=== PATIENT | male | born 1970 | race Caucasian/White ===

== ENCOUNTER 2017-11-24 20:19 | Emergency (ER) | payer OTHER, SELFPAY ==
[2017-11-24 21:21] VITALS: BP 118/82; PULSE 96; RESP 18; TEMP 37.2; O2SAT 98; BMI 32.1
--- NOTE | 2017-11-24 21:26 | XR_ITS ---
XR chest 2V COMPARISON: PA and lateral chest 12/29/2013 HISTORY: Shortness of breath TECHNIQUE: PA and lateral chest FINDINGS: The lung lao are well expanded and appear clear of infiltrate. The cardiac silhouette and vascularity are normal. There are calcified hilar nodes bilaterally and calcified subcarinal nodes. The bony thorax is normal. IMPRESSION: Old granulomatous disease, no acute chest pathology noted
[2017-11-24 21:36] LABS: UTC Influenza A Antigen Negative (Negative); UTC Influenza B Antigen Negative (Negative)
--- NOTE | 2017-11-24 21:50 | PC.NURSE ---
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 At rest, RR 32. Lungs tight w/ expiratory wheezing but SPO2 stable at 98. + tobacco abuse. Denies hx of chronic lung disease. Typically not SOA. Sudden onset today associated w/ bodyaches and fatigue. Rapid flu negative. CXR pending ER MDs evaluation. Pt unable to speak in sentences he is so SOA. Discussed possible differentials and [facility] guidelines. Pt and agreeable to transfer to ER. Walked over to speak with ER MD. Not available. Report given to only available staff, Shira Juarez. Room 4 available. Pt assisted to ER in WC.
[2017-11-24 21:58] VITALS: PULSE 90; RESP 26; O2SAT 93; BMI 32.1
[2017-11-24 22:12] LABS: Adenovirus,PCR Not Detected (NotDetected); Bordetella Pertussis Not Detected (NotDetected); Chlamydophila Pneumoniae, PCR Not Detected (NotDetected); Coronavirus 229E Not Detected (NotDetected); Coronavirus NL63 Not Detected (NotDetected); Coronavirus OC43 Not Detected (NotDetected); Coronovirus HKU1,PCR Not Detected (NotDetected); Human Metapneumovirus Not Detected (NotDetected); Influenza A, PCR Not Detected (NotDetected); Influenza AH1, 2009 Not Detected (NotDetected); Influenza AH1, PCR Not Detected (NotDetected); Influenza AH3,PCR Not Detected (NotDetected); Influenza B, PCR Not Detected (NotDetected); Mycoplasma Pneumoniae, PCR Not Detected (NotDected); Parainfluenza 1, PCR Not Detected (NotDetected); Parainfluenza 2, PCR Not Detected (NotDetected); Parainfluenza 3, PCR Not Detected (NotDetected); Parainfluenza 4, PCR Not Detected (NotDetected); Respiratory Syncytial Virus Not Detected (NotDetected); Rhinovirus/Enterovirus Not Detected (NotDetected)
[2017-11-24 22:28] LABS: Strep Scrn Group A (Rapid) Negative (Negative)
[2017-11-24 22:37] LABS: Basophils % 0.6 % (0.1-2.0); Eosinophils # 0.1 K/mm3 (0.0-0.4); Eosinophils % 1.6 % (0.1-12.0); Hematocrit 40.1 % (42.0-52.0); Hemoglobin 13.3 g/dL (14.1-18.0); Lymphocytes # 2.6 K/mm3 (0.7-4.5); Lymphocytes % 38.8 K/mm3 (10-50); Mean Corpuscular HGB Conc 33.1 g/dL (31.8-35.4); Mean Corpuscular Hemoglobin 29.6 pg (27.0-31.2); Mean Corpuscular Volume 89.6 fl (80-94); Mean Platelet Volume 7.4 fl (7.4-10.4); Monocytes # 0.7 K/mm3 (0.1-1.0); Monocytes % 9.8 % (1.7-9.3); Neutrophils # 3.3 K/mm3 (1.8-7.8); Neutrophils % 49.2 % (37.0-80.0); Platelet Count 183 K/mm3 (142-424); Red Blood Count 4.48 M/mm3 (4.60-6.20); Red Cell Distribution Width 12.4 % (11.5-17.5); White Blood Count 6.7 K/mm3 (4.8-10.8)
[2017-11-24 22:50] LABS: Lactic Acid 1.1 mmol/L (0.4-2.0)
[2017-11-24 22:51] LABS: Alanine Aminotransferase 51 U/L (12-78); Albumin Level 3.8 gm/dL (3.4-5.0); Albumin/Globulin Ratio 1.4 (1.1-1.8); Alkaline Phosphatase 85 U/L (46-116); Anion Gap 9.9 mEq/L (5-15); Aspartate Amino Transferase 35 U/L (15-37); Bilirubin,Total 0.3 mg/dL (0.2-1.0); Blood Urea Nitrogen 9 mg/dL (7-18); Calcium 8.2 mg/dL (8.5-10.1); Carbon Dioxide 30 mmol/L (21.0-32.0); Chloride 105 mmol/L (98-107); Creatinine Clearance Estimated 148 mL/min (0-300); Estimated Glomerular Filt Rate 90 ml/min (>60); GFR (African American) 109 ML/MIN (>60); Globulin 2.8 gm/dl (1.3-3.2); Glucose 117 mg/dL (74-106); Potassium 3.9 mmoL/L (3.5-5.1); Sodium 141 mmol/L (136-145); Total Protein,Serum 6.6 gm/dL (6.4-8.2)
[2017-11-24 22:57] LABS: CKMB Relative Index 0.4 U/L (0-4.0); Creatine Kinase 407 U/L (39-308); Creatine Kinase MB 1.5 mg/ml (0.0-3.6); Troponin I < 0.02 ng/ml (0.00-0.06)
--- NOTE | 2017-11-24 22:58 | HMH.EDGENADL ---
ED Disposition Clinical Impression: Upper respiratory infection Qualifiers: URI type: unspecified viral URI Qualified Code(s): J06.9 - Acute upper respiratory infection, unspecified Reactive airway disease Qualifiers: Asthma severity: mild Asthma persistence: intermittent Asthma complication type: uncomplicated Qualified Code(s): J45.20 - Mild intermittent asthma, uncomplicated Disposition: Home, Self-Care Condition on Discharge: Fair Instructions: DI for Viral Upper Respiratory Infection -- Adult, DI for Reactive Airway Disease-Adult Additional Instructions: Please take the medications prescribed as directed, follow-up with PCP within 2 days, if not better. Alternate Motrin with Tylenol for fever/body aches. Drink plenty of fluids. Prescriptions: Albuterol Sulfate [Proventil-HFA 90mcg/puff Inh] 2 puffs IH QIDP PRN #1 inh PRN Reason: Dyspnea Amoxicillin/Potassium Clav [Augmentin 875-125 Tablet] 1 tab PO Q12H #20 tab methylPREDNISolone [Medrol] 4 mg PO DIRECTED #1 tab.ds.pk Referrals: Izabella Pinto APRN [Primary Care Provider] - Forms: Work/School Release Time of Disposition: 23:14 - Critical Care Critical Care Time: No Attestation: On 11/24/17, the high probability of a clinically significant, sudden or life threatening deterioration of the following system(s) required my full and direct attention, intervention and personal management. The time I documented below is in addition to time spent performing reported procedures but includes the following listed in this critical care notation. Medical Decision Making - Medical Records Medical records reviewed: Yes: I reviewed the patient's medical records. Vital Signs: 11/24/17 21:21 11/24/17 21:58 11/24/17 23:14 Temperature 99 F Temperature Source Temporal Artery Scan Pulse Rate 86 Pulse Rate [Left Brachial] 96 H 90 Respiratory Rate 18 26 H 16 Blood Pressure 104/67 Blood Pressure [Left Arm] 118/82 Blood Pressure Mean [Left Arm] 94 Blood Pressure Source Automatic Cuff Blood Pressure Source [Left Arm] Automatic Cuff Blood Pressure Position Supine Blood Pressure Position [Left Arm] Sitting 02 Sat by Pulse Oximetry 98 93 L Oxygen Delivery Method Room Air Room Air Room Air - Lab Data Lab results reviewed: Yes: I reviewed the patient's lab results. Lab Results 11/24/17 21:26: Influenza Type A Ag Negative, Influenza Type B Ag Negative 11/24/17 22:05: Group A Strep Rapid Negative 11/24/17 22:05: Chlamy pneumoniae PCR Not detected, Adenovirus (PCR) Not detected, B.parapertussis DNA PCR Not detected, Coronavirus OC43 (PCR) Not detected, Coronavirus HKU1 (PCR) Not detected, Coronavirus 229E (PCR) Not detected, Coronavirus NL63 (PCR) Not detected, Human Metapneumovir PCR Not detected, Influenza A (H1) PCR Not detected, Influ A (H1N1/09) PCR Not detected, Influenza A (H3) PCR Not detected, Influenza Type A (PCR) Not detected, Influenza Type B (PCR) Not detected, M. pneumoniae (PCR) Not detected, Parainfluenza 1 (PCR) Not detected, Parainfluenza 2 (PCR) Not detected, Parainfluenza 3 (PCR) Not detected, Parainfluenza 4 (PCR) Not detected, RSV (PCR) Not detected, Entero/Rhino (PCR) Not detected 11/24/17 22:20: WBC 6.7, RBC 4.48 L, Hgb 13.3 L, Hct 40.1 L, MCV 89.6, MCH 29.6, MCHC 33.1, RDW 12.4, Plt Count 183, MPV 7.4, Neut % (Auto) 49.2, Lymph % (Auto) 38.8, [place] % (Auto) 9.8 H, Eos % (Auto) 1.6, Baso % (Auto) 0.6, Neut # (Auto) 3.3, Lymph # (Auto) 2.6, [place] # (Auto) 0.7, Eos # (Auto) 0.1, Baso # (Auto) 0.0 11/24/17 22:20: Sodium 141, Potassium 3.9, Chloride 105, Carbon Dioxide 30, Anion Gap 9.9, BUN 9, Creatinine 0.90, Estimated Creat Clear 148, Estimated GFR 90, Est GFR ( Amer) 109, Glucose 117 H, Calcium 8.2 L, Total Bilirubin 0.3, AST 35, ALT 51, Alkaline Phosphatase 85, Total Protein 6.6, Albumin 3.8, Globulin 2.8, Albumin/Globulin Ratio 1.4 01/14/18 22:20: Lactic Acid 1.1 11/24/17 22:20: B-Natriuretic Peptide 24 11/24/17 22:20: Total Cre
--- NOTE | 2017-11-24 23:01 | ED_ITS ---
ED Disposition Clinical Impression: Upper respiratory infection Qualifiers: URI type: unspecified viral URI Qualified Code(s): J06.9 - Acute upper respiratory infection, unspecified Reactive airway disease Qualifiers: Asthma severity: mild Asthma persistence: intermittent Asthma complication type : uncomplicated Qualified Code(s): J45.20 - Mild intermittent asthma, uncomplicated Disposition: Home, Self-Care Condition on Discharge: Fair Instructions: DI for Viral Upper Respiratory Infection -- Adult, DI for Reactive Airway Disease-Adult Additional Instructions: Please take the medications prescribed as directed, follow-up with PCP within 2 days, if not better. Alternate Motrin with Tylenol for fever/body aches. Drink plenty of fluids. Prescriptions: Albuterol Sulfate [Proventil-HFA 90mcg/puff Inh] 2 puffs IH QIDP PRN #1 inh PRN Reason: Dyspnea Amoxicillin/Potassium Clav [Augmentin 875-125 Tablet] 1 tab PO Q12H #20 tab methylPREDNISolone [Medrol] 4 mg PO DIRECTED #1 tab.ds.pk Referrals: Izabella Pinto APRN [Primary Care Provider] - Forms: Work/School Release Time of Disposition: 23:14 - Critical Care Critical Care Time: No Attestation: On 11/24/17, the high probability of a clinically significant, sudden or life threatening deterioration of the following system(s) required my full and direct attention, intervention and personal management. The time I documented below is in addition to time spent performing reported procedures but includes the following listed in this critical care notation. Medical Decision Making - Medical Records Medical records reviewed: Yes: I reviewed the patient's medical records. Vital Signs: 11/24/17 21:21 11/24/17 21:58 11/24/17 23:14 Temperature 99 F Temperature Source Temporal Artery Scan Pulse Rate 86 Pulse Rate [Left Brachial] 96 H 90 Respiratory Rate 18 26 H 16 Blood Pressure 104/67 Blood Pressure [Left Arm] 118/82 Blood Pressure Mean [Left Arm] 94 Blood Pressure Source Automatic Cuff Blood Pressure Source [Left Arm] Automatic Cuff Blood Pressure Position Supine Blood Pressure Position [Left Arm] Sitting 02 Sat by Pulse Oximetry 98 93 L Oxygen Delivery Method Room Air Room Air Room Air - Lab Data Lab results reviewed: Yes: I reviewed the patient's lab results. Lab Results 11/24/17 21:26: Influenza Type A Ag Negative, Influenza Type B Ag Negative 11/24/17 22:05: Group A Strep Rapid Negative 11/24/17 22:05: Chlamy pneumoniae PCR Not detected, Adenovirus (PCR) Not detected, B.parapertussis DNA PCR Not detected, Coronavirus OC43 (PCR) Not detected, Coronavirus HKU1 (PCR) Not detected, Coronavirus 229E (PCR) Not detected, Coronavirus NL63 (PCR) Not detected, Human Metapneumovir PCR Not detected, Influenza A (H1) PCR Not detected, Influ A (H1N1/09) PCR Not detected , Influenza A (H3) PCR Not detected, Influenza Type A (PCR) Not detected, Influenza Type B (PCR) Not detected, M. pneumoniae (PCR) Not detected, Parainfluenza 1 (PCR) Not detected, Parainfluenza 2 (PCR) Not detected, Parainfluenza 3 (PCR) Not detected, Parainfluenza 4 (PCR) Not detected, RSV (PCR ) Not detected, Entero/Rhino (PCR) Not detected 11/24/17 22:20: WBC 6.7, RBC 4.48 L, Hgb 13.3 L, Hct 40.1 L, MCV 89.6, MCH 29.6 , MCHC 33.1, RDW 12.4, Plt Count 183, MPV 7.4, Neut % (Auto) 49.2, Lymph % (Auto ) 38.8, [place] % (Auto) 9.8 H, Eos % (Auto) 1.6, Baso % (Auto) 0.6, Neut # (Auto) 3.3, Lymph # (Auto) 2.6, [place] # (Auto) 0.7, Eos # (Auto)
[2017-11-24 23:14] VITALS: BP 104/67; PULSE 86; RESP 16
== END 2017-11-24 23:16 | disposition home or self-care (01) ==
LOC: UTC 20:28 → ER 21:57
PROVIDERS: Nurse Practitioner Family; Emergency Provider Emergency Medicine; Family Provider Family Medicine; PCP Nurse Practitioner Family
DX: J06.9 Acute upper respiratory infection, unspecified (principal); J45.20 Mild intermittent asthma, uncomplicated
CPT/HCPCS: 71046; 80053; 82550; 82553; 83605; 83880; 84484; 85025; 87040; 87430; 87486; 87581; 87633; 87798; 87804; 93005; 96365; 96374; 96375; 99284; J2405

== ENCOUNTER 2017-11-28 10:36 | Inpatient (IN) | payer OTHER, SELFPAY ==
[2017-11-28 10:36] VITALS: BP 104/69; PULSE 70; RESP 14; TEMP 36.9; O2SAT 99; BMI 32.5
--- NOTE | 2017-11-28 10:52 | CT_ITS ---
CT abdomen pelvis w con CLINICAL INDICATION: ITS.REASON: MID EPI PAIN, VOMITING, ORDERING PHYSICIAN: Malcolm Garcia MD PATIENT AGE: 47 years COMPARISON: 07/19/2017 TECHNIQUE: Axial images obtained with sagittal and coronal reformats. PROCEDURE: Oral Contrast: None IV Contrast: 75 mL [id number]. FINDINGS: Lung bases are clear. Mild fatty liver infiltration. No focal liver lesion evident. Spleen, right adrenal gland, pancreas, and gallbladder have an unremarkable appearance. There is nodular enlargement of the left adrenal gland at 14 mm unchanged likely related to an adenoma. No hydronephrosis. No renal mass. No evidence of aortic aneurysm or acute retroperitoneal hemorrhage. Unremarkable appendix. There are diverticula of the descending and sigmoid colon. No evidence of diverticulitis. There are some mildly prominent small bowel loops present in the left lower quadrant measuring up to 4 cm with air-fluid level. Partial small bowel obstruction or enteritis is consideration. A definite transition point is not identified. No free air. No acute bony anomalies. IMPRESSION: 1. Mildly distended small bowel loops in the left lower quadrant with air-fluid levels nonspecific and could be related partial obstruction or enteritis. 2. No other acute anomalies evident.
[2017-11-28 11:08] LABS: Basophils # 0.1 K/mm3 (0-0.2); Basophils % 0.5 % (0.1-2.0); Eosinophils # 0.1 K/mm3 (0.0-0.4); Eosinophils % 1.1 % (0.1-12.0); Hematocrit 47.5 % (42.0-52.0); Hemoglobin 15.9 g/dL (14.1-18.0); Lymphocytes # 4.9 K/mm3 (0.7-4.5); Lymphocytes % 45.1 K/mm3 (10-50); Mean Corpuscular HGB Conc 33.6 g/dL (31.8-35.4); Mean Corpuscular Hemoglobin 29.8 pg (27.0-31.2); Mean Corpuscular Volume 88.7 fl (80-94); Mean Platelet Volume 7.5 fl (7.4-10.4); Monocytes # 0.7 K/mm3 (0.1-1.0); Monocytes % 6.8 % (1.7-9.3); Neutrophils % 46.5 % (37.0-80.0); Platelet Count 289 K/mm3 (142-424); Red Blood Count 5.35 M/mm3 (4.60-6.20); Red Cell Distribution Width 12.5 % (11.5-17.5); White Blood Count 10.8 K/mm3 (4.8-10.8)
--- NOTE | 2017-11-28 11:22 | HMH.EDABDPAI ---
ED Disposition Clinical Impression: Partial small bowel obstruction Nausea and vomiting Qualifiers: Vomiting type: unspecified Vomiting Intractability: non-intractable Qualified Code(s): R11.2 - Nausea with vomiting, unspecified Disposition: Admitted As Inpatient Condition on Discharge: Fair Time of Disposition: 12:45 - Critical Care Critical Care Time: No Attestation: On 11/28/17, the high probability of a clinically significant, sudden or life threatening deterioration of the following system(s) required my full and direct attention, intervention and personal management. The time I documented below is in addition to time spent performing reported procedures but includes the following listed in this critical care notation. Total Critical Care Time: 45 (small bowel obstruction) My critical care processes included: Assessment & monitoring of V/S, Initial and Re-exams, Data Review/Interpretation, Coordinating Care, Medication Orders and management, Documentation Medical Decision Making - Medical Records Medical records reviewed: Yes: I reviewed the patient's medical records. Vital Signs: 11/28/17 10:36 11/28/17 14:11 Temperature 98.5 F 98.5 F Temperature Source Oral Oral Pulse Rate 75 Pulse Rate [Left Brachial] 70 Respiratory Rate 14 14 Blood Pressure 104/55 Blood Pressure [Right Arm] 104/69 Blood Pressure Mean [Right Arm] 80 Blood Pressure Source Automatic Cuff Blood Pressure Source [Right Arm] Automatic Cuff Blood Pressure Position Sitting Blood Pressure Position [Right Arm] Sitting 02 Sat by Pulse Oximetry 99 Oxygen Delivery Method Room Air Room Air - Lab Data Lab results reviewed: Yes: I reviewed the patient's lab results. Lab Results 11/28/17 10:25: WBC 10.8, RBC 5.35, Hgb 15.9, Hct 47.5, MCV 88.7, MCH 29.8, MCHC 33.6, RDW 12.5, Plt Count 289 D, MPV 7.5, Neut % (Auto) 46.5, Lymph % (Auto) 45.1, [place] % (Auto) 6.8, Eos % (Auto) 1.1, Baso % (Auto) 0.5, Neut # (Auto) 5.0, Lymph # (Auto) 4.9 H, [place] # (Auto) 0.7, Eos # (Auto) 0.1, Baso # (Auto) 0.1 11/28/17 10:25: Sodium 134 L, Potassium 3.8, Chloride 100, Carbon Dioxide 28, Anion Gap 9.8, BUN 14, Creatinine 0.97, Estimated Creat Clear 143, Estimated GFR 83, Est GFR ( Amer) 100, Glucose 155 H, Calcium 9.2, Total Bilirubin 0.3, AST 30, ALT 56, Alkaline Phosphatase 90, Total Creatine Kinase 106, CK-MB (CK-2) 0.7 D, CK-MB (CK-2) Rel Index 0.7, Troponin I < 0.02, Total Protein 7.7, Albumin 4.1, Globulin 3.6 H, Albumin/Globulin Ratio 1.1 Result diagrams: 11/30/17 09:45 11/30/17 09:45 Orders (Tests/Meds): ED MEDICATIONS Discontinued Medications Generic Name Dose Route Start Last Admin Trade Name Freq PRN Reason Stop Dose Admin Acetaminophen 650 mg 11/29/17 17:10 11/29/17 17:10 Acetaminophen 325mg Tab PO 12/29/17 17:09 650 mg Q4HP PRN Administration Mild to Moderate Pain Albuterol Sulfate 2 puffs 11/28/17 15:34 11/29/17 06:28 Proventil-Hfa 90mcg/Puff Inhaler 12/28/17 15:33 2 1000units QIDP MARSHA Administration Albuterol Sulfate 2 puffs 11/29/17 14:19 11/30/17 08:33 Proventil-Hfa 90mcg/Puff Inhaler 12/28/17 15:33 2 puffs QIDP PRN Administration SOA Buspirone HCl 10 mg 11/29/17 09:00 11/30/17 08:30 Buspar 10mg Tablet PO 12/29/17 08:59 10 mg DAILY MARSHA Administration Hydromorphone HCl 1 mg 11/28/17 14:06 11/28/17 20:10 Dilaudid 2mg/Ml Syringe IV 11/28/17 14:07 Not Given ONCE ONE Hydromorphone HCl 1 mg 11/28/17 14:50 Dilaudid 4mg/Ml Syringe IV 12/28/17 14:49 Q4HP PRN Moderate to Severe Pain Hydromorphone HCl 1 mg 11/28/17 15:34 11/28/17 19:59 Dilaudid 2mg/Ml Syringe IV 01/18/18 15:35 Not Given ONCE ONE Hydromorphone HCl 1 mg 11/28/17 15:34 11/29/17 17:28 Dilaudid 4mg/Ml Syringe IV 12/28/17 14:49 1 mg Q4HP PRN Administration Moderate to Severe Pain Hydromorphone HCl 2 mg 11/28/17 10:54 11/28/17 11:19 Di
[2017-11-28 11:42] LABS: Alanine Aminotransferase 56 U/L (12-78); Albumin Level 4.1 gm/dL (3.4-5.0); Albumin/Globulin Ratio 1.1 (1.1-1.8); Alkaline Phosphatase 90 U/L (46-116); Anion Gap 9.8 mEq/L (5-15); Aspartate Amino Transferase 30 U/L (15-37); Bilirubin,Total 0.3 mg/dL (0.2-1.0); Blood Urea Nitrogen 14 mg/dL (7-18); CKMB Relative Index 0.7 U/L (0-4.0); Calcium 9.2 mg/dL (8.5-10.1); Carbon Dioxide 28 mmol/L (21.0-32.0); Chloride 100 mmol/L (98-107); Creatine Kinase 106 U/L (39-308); Creatine Kinase MB 0.7 mg/ml (0.0-3.6); Creatinine Clearance Estimated 143 mL/min (0-300); Creatinine,Serum 0.97 mg/dL (0.70-1.30); Estimated Glomerular Filt Rate 83 ml/min (>60); GFR (African American) 100 ML/MIN (>60); Globulin 3.6 gm/dl (1.3-3.2); Glucose 155 mg/dL (74-106); Potassium 3.8 mmoL/L (3.5-5.1); Sodium 134 mmol/L (136-145); Total Protein,Serum 7.7 gm/dL (6.4-8.2); Troponin I < 0.02 ng/ml (0.00-0.06)
[2017-11-28 14:11] VITALS: BP 104/55; PULSE 75; RESP 14; TEMP 36.9; O2SAT 98
[2017-11-28 14:44] VITALS: BP 104/25; PULSE 79; RESP 20; TEMP 36.8; O2SAT 96; BMI 32.5
--- NOTE | 2017-11-28 15:22 | HMH.GSCON ---
*Admission Date: 11/28/17 *Chief complaint: Abdominal pain, nausea/vomiting, and diarrhea *History of present illness: This is a 47-year-old gentleman seen in consultation from Dr. Colvin for evaluation regarding possible partial bowel obstruction versus enteritis. He presented to the emergency department earlier today with an acute onset mid abdominal and epigastric pain. He had associated nausea, vomiting, and diarrhea. He describes watery diarrhea . He states that he felt clammy . No definitive fevers. No hematemesis. No melena. No bright red blood per rectum. A CT scan in the emergency department revealed a focus of small bowel with some mild to moderate dilatation, but no definitive transition. These changes were felt to be consistent with either focal enteritis versus partial small bowel obstruction. Note: On June 192016 the patient underwent laparoscopic repair of umbilical hernia (Dr. Avila) Review of Systems - Constitutional Denies weight loss - Eyes Denies change in vision - ENT Denies difficulty swallowing - *Cardiovascular Denies chest pain - *Respiratory Denies cough - *Gastrointestinal Reports abdominal pain, Reports change in stools, Reports loose stools, Reports nausea, Reports vomiting, Denies bright, red blood in stools, Denies black, tarry stools - *Genitourinary Denies difficulty urinating - *Neurologic Denies abnormal speech - Psychiatric Denies confusion - Endocrine Denies heat intolerance - Hematologic/Lymphatic Denies easy bleeding - Allergic/Immunologic Denies itchy eyes H History Medical History: Denies:: Cancer, Diabetes Mellitus Type 1, Diabetes Mellitus Type 2, MRSA Amputation: No Fractures: No - *Social History Smoking Status: Current every day smoker Tobacco Type: cigarettes Alcohol Intake: never - Psychiatric History Expresses thoughts of harming self/others: None Suicide Plan Description: No Plan *Family Hx:: No significant family history Meds Home Medications Medication Instructions Recorded Confirmed Type Buspirone HCl [Buspar 10mg tablet] 10 mg PO DAILY 11/24/17 11/24/17 History Allergies Allergy/AdvReac Type Severity Reaction Status Date / Time No Known Allergies Allergy Verified 11/24/17 22:05 Exam Vital signs and Labs for Last 24 Hours: Temp Pulse Resp BP Pulse Ox 98.3 F 79 20 104/25 96 11/28/17 14:44 11/28/17 14:44 11/28/17 14:44 11/28/17 14:44 11/28/17 14:44 I & O for Last 24 hours: Intake & Output 11/26/17 11/27/17 11/28/17 11/29/17 11:59 11:59 11:59 11:59 Weight 233 lb 2 oz - Constitutional no acute distress - *Routine HEENT Exam Head: Present: normocephalic, atraumatic - *Routine Neck Exam Present: full ROM - *Routine Respiratory Exam Absent: respiratory distress - *Routine Cardiovascular Exam Present: RRR - *Routine Abdominal Exam Present: soft. Absent: distended - *Routine Extremities Exam Absent: cyanosis, clubbing, edema - *Routine Neurological Exam Present: alert - Routine Psychiatric Exam Present: normal affect Results - Labs 11/28/17 10:25 11/28/17 10:25 - Imaging CT scan - abdomen: report reviewed, image reviewed Assessment and Plan (1) Enteritis Current visit: Yes Status: Acute Category: Medical Code(s): K52.9 - Noninfective gastroenteritis and colitis, unspecified Focal enteritis versus early/partial small bowel obstruction. 1) diarrhea panel 2) small bowel follow-through 3) serial abdominal exams (2) Nausea and vomiting Current visit: Yes Status: Acute Qualifiers: Vomiting type: unspecified Vomiting Intractability: intractable Qualified Code(s): R11.2 - Nausea with vomiting, unspecified Category: Medical Code(s): R11.2 - Nausea with vomiting, unspecified (3) Partial small bowel obstruction Current visit: Yes Status: Acute Category: Surgical Code(s): K56.600 - Partial intest
--- NOTE | 2017-11-28 15:25 | P.CONS_ITS ---
*Admission Date: 11/28/17 *Chief complaint: Abdominal pain, nausea/vomiting, and diarrhea *History of present illness: This is a 47-year-old gentleman seen in consultation from Dr. Colvin for evaluation regarding possible partial bowel obstruction versus enteritis. He presented to the emergency department earlier today with an acute onset mid abdominal and epigastric pain. He had associated nausea, vomiting, and diarrhea. He describes watery diarrhea . He states that he felt clammy . No definitive fevers. No hematemesis. No melena. No bright red blood per rectum. A CT scan in the emergency department revealed a focus of small bowel with some mild to moderate dilatation, but no definitive transition. These changes were felt to be consistent with either focal enteritis versus partial small bowel obstruction. Note: On June 192016 the patient underwent laparoscopic repair of umbilical hernia (Dr. Avila) Review of Systems - Constitutional Denies weight loss - Eyes Denies change in vision - ENT Denies difficulty swallowing - *Cardiovascular Denies chest pain - *Respiratory Denies cough - *Gastrointestinal Reports abdominal pain, Reports change in stools, Reports loose stools, Reports nausea, Reports vomiting, Denies bright, red blood in stools, Denies black, tarry stools - *Genitourinary Denies difficulty urinating - *Neurologic Denies abnormal speech - Psychiatric Denies confusion - Endocrine Denies heat intolerance - Hematologic/Lymphatic Denies easy bleeding - Allergic/Immunologic Denies itchy eyes H History Medical History: Denies:: Cancer, Diabetes Mellitus Type 1, Diabetes Mellitus Type 2, MRSA Amputation: No Fractures: No - *Social History Smoking Status: Current every day smoker Tobacco Type: cigarettes Alcohol Intake: never - Psychiatric History Expresses thoughts of harming self/others: None Suicide Plan Description: No Plan *Family Hx:: No significant family history Meds Home Medications Medication Instructions Recorded Confirmed Type Buspirone HCl [Buspar 10mg tablet] 10 mg PO DAILY 11/24/17 11/24/17 History Allergies Allergy/AdvReac Type Severity Reaction Status Date / Time No Known Allergies Allergy Verified 11/24/17 22:05 Exam Vital signs and Labs for Last 24 Hours: Temp Pulse Resp BP Pulse Ox 98.3 F 79 20 104/25 96 11/28/17 14:44 11/28/17 14:44 11/28/17 14:44 11/28/17 14:44 11/28/17 14:44 I & O for Last 24 hours: Intake & Output 11/26/17 11/27/17 11/28/17 11/29/17 11:59 11:59 11:59 11:59 Weight 233 lb 2 oz - Constitutional no acute distress - *Routine HEENT Exam Head: Present: normocephalic, atraumatic - *Routine Neck Exam Present: full ROM - *Routine Respiratory Exam Absent: respiratory distress - *Routine Cardiovascular Exam Present: RRR - *Routine Abdominal Exam Present: soft. Absent: distended - *Routine Extremities Exam Absent: cyanosis, clubbing, edema - *Routine Neurological Exam Present: alert - Routine Psychiatric Exam Present: normal affect Results - Labs 11/28/17 10:25 11/28/17 10:25 - Imaging CT scan - abdomen: report reviewed, image reviewed Assessment and Plan (1) Enter
[2017-11-28 20:00] VITALS: BP 103/64; PULSE 61; RESP 16; TEMP 36.9; O2SAT 95
--- NOTE | 2017-11-29 00:01 | FL_ITS ---
FL small bowel follow through CLINICAL INDICATION: Severe abdominal pain, follow-up abnormal CT scan ITS.REASON: Enteritis vs. SBO ORDERING PHYSICIAN: Gopal Colvin MD PATIENT AGE: 47 years Fluoroscopy time: 1 minute and 33 seconds COMPARISON: None FINDINGS: Small bowel has an unremarkable appearance. No evidence of obstruction. No small bowel dilatation or mucosal amount is evident. Spot views of the terminal ileum and remaining small bowel are unremarkable. There was normal transit time to the large bowel. IMPRESSION: Negative small bowel follow-through. No evidence of obstruction. No areas of enteritis apparent.
[2017-11-29 04:00] VITALS: BP 115/66; PULSE 69; RESP 16; TEMP 36.6; O2SAT 97
--- NOTE | 2017-11-29 06:38 | HMH.GSPN ---
Subjective Patient reports: no new complaints, still having pain, flatus, no bowel movement (no N/V at this time) Exam Vital signs and Labs for Last 24 Hours: Temp Pulse Resp BP Pulse Ox 98.4 F 61 16 103/64 95 11/28/17 20:00 11/28/17 20:00 11/28/17 20:00 11/28/17 20:00 11/28/17 20:00 I & O for Last 24 hours: Intake & Output 11/26/17 11/27/17 11/28/17 11/29/17 11:59 11:59 11:59 11:59 Intake Total 0 / 0 Balance 0 / 0 Weight 233 lb 2 oz - Constitutional no acute distress - *Routine Respiratory Exam Absent: respiratory distress - *Routine Cardiovascular Exam Present: RRR - *Routine Abdominal Exam Present: tenderness (Still very tender throughout abdomen (worse in mid abdomen)), guarding Progress Note: A&P (1) Enteritis Status: Acute Assessment and plan: His level of pain is quite significant and has not improved since admission. He does continue to pass flatus and does not show signs consistent with definitive bowel obstruction, although partial obstruction is certainly a possibility. A small bowel follow-through has been ordered. Diarrhea panel pending. This may certainly represent an abnormal/focal severe enteritis. Gastroenterology consultation may be warranted. Capsule endoscopy (pending SBFT) also a consideration. Current Visit: Yes (2) Nausea and vomiting Status: Acute Current Visit: Yes (3) Partial small bowel obstruction Status: Acute Current Visit: Yes
--- NOTE | 2017-11-29 06:43 | P.PN_ITS ---
Subjective Patient reports: no new complaints, still having pain, flatus, no bowel movement (no N/V at this time) Exam Vital signs and Labs for Last 24 Hours: Temp Pulse Resp BP Pulse Ox 98.4 F 61 16 103/64 95 11/28/17 20:00 11/28/17 20:00 11/28/17 20:00 11/28/17 20:00 11/28/17 20:00 I & O for Last 24 hours: Intake & Output 11/26/17 11/27/17 11/28/17 11/29/17 11:59 11:59 11:59 11:59 Intake Total 0 / 0 Balance 0 / 0 Weight 233 lb 2 oz - Constitutional no acute distress - *Routine Respiratory Exam Absent: respiratory distress - *Routine Cardiovascular Exam Present: RRR - *Routine Abdominal Exam Present: tenderness (Still very tender throughout abdomen (worse in mid abdomen) ), guarding Progress Note: A&P (1) Enteritis Status: Acute Assessment and plan: His level of pain is quite significant and has not improved since admission. He does continue to pass flatus and does not show signs consistent with definitive bowel obstruction, although partial obstruction is certainly a possibility. A small bowel follow-through has been ordered. Diarrhea panel pending. This may certainly represent an abnormal/focal severe enteritis. Gastroenterology consultation may be warranted. Capsule endoscopy (pending SBFT ) also a consideration. Current Visit: Yes (2) Nausea and vomiting Status: Acute Current Visit: Yes (3) Partial small bowel obstruction Status: Acute Current Visit: Yes
[2017-11-29 07:11] LABS: Basophils % 0.3 % (0.1-2.0); Eosinophils # 0.1 K/mm3 (0.0-0.4); Monocytes # 0.5 K/mm3 (0.1-1.0); Red Cell Distribution Width 12.7 % (11.5-17.5)
[2017-11-29 07:17] LABS: Eosinophils % 1.1 % (0.1-12.0); Hematocrit 40.3 % (42.0-52.0); Hemoglobin 13.4 g/dL (14.1-18.0); Lymphocytes # 3.8 K/mm3 (0.7-4.5); Lymphocytes % 44.2 K/mm3 (10-50); Mean Corpuscular HGB Conc 33.2 g/dL (31.8-35.4); Mean Corpuscular Hemoglobin 29.8 pg (27.0-31.2); Mean Corpuscular Volume 89.6 fl (80-94); Mean Platelet Volume 7.3 fl (7.4-10.4); Monocytes % 5.9 % (1.7-9.3); Neutrophils # 4.1 K/mm3 (1.8-7.8); Neutrophils % 48.4 % (37.0-80.0); Platelet Count 192 K/mm3 (142-424); White Blood Count 8.5 K/mm3 (4.8-10.8)
[2017-11-29 07:19] LABS: Anion Gap 10.9 mEq/L (5-15); Blood Urea Nitrogen 17 mg/dL (7-18); Carbon Dioxide 31 mmol/L (21.0-32.0); Chloride 101 mmol/L (98-107); Creatinine Clearance Estimated 182 mL/min (0-300); Creatinine,Serum 0.75 mg/dL (0.70-1.30); Estimated Glomerular Filt Rate 111 ml/min (>60); GFR (African American) 134 ML/MIN (>60); Glucose 83 mg/dL (74-106); Potassium 3.9 mmoL/L (3.5-5.1); Sodium 139 mmol/L (136-145)
--- NOTE | 2017-11-29 07:31 | HMH.PHAVTE ---
[facility] Pharmacy VTE Monitoring - Patient Demographics Admission date: 11/28/17 Report Date: 11/29/17 Time: 07:31 Allergies/Adverse Reactions: Patient Allergies No Known Allergies Allergy (Verified 11/24/17 22:05) Height: 1.8 m Weight: 106.849 kg Patient Problems: Current Active Problems Partial small bowel obstruction (Acute) Nausea and vomiting (Acute) Enteritis (Acute) - VTE Risk Labs: VTE Related Lab Results Hgb 13.4 g/dL (14.1-18.0) L D 11/29/17 06:38 Hct 40.3 % (42.0-52.0) L 11/29/17 06:38 Plt Count 192 K/mm3 (142-424) D 11/29/17 06:38 BUN 17 mg/dL (7-18) 11/29/17 06:38 Creatinine 0.75 mg/dL (0.70-1.30) D 11/29/17 06:38 Estimated Creat Clear 182 mL/min (0-300) 11/29/17 06:38 Was VTE Risk Assessment Performed: Yes VTE Score: 1 VTE Risk Level: Very Low Risk Clinical Trial Participant: No - Prophylaxis Types of VTE Prophylaxis: TEDS Knee High
--- NOTE | 2017-11-29 07:44 | HMH.NBBLANK ---
[facility] Blank Note Date: 11/29/17 Time: 07:44 Narrative:: Notes and studies reviewed. Patient still complains of pain. On exam he has some tenderness with guarding and rebound -- diffusely but more significant in left abdomen. Patient scheduled for SBFT today.
--- NOTE | 2017-11-29 07:47 | P.PN_ITS ---
[facility] Blank Note Date: 11/29/17 Time: 07:44 Narrative:: Notes and studies reviewed. Patient still complains of pain. On exam he has some tenderness with guarding and rebound -- diffusely but more significant in left abdomen. Patient scheduled for SBFT today.
[2017-11-29 08:58] VITALS: BP 112/67; PULSE 69; RESP 18; TEMP 36.7; O2SAT 96
--- NOTE | 2017-11-29 12:29 | HMH.HP ---
*Admission Date: 11/28/17 *Chief complaint: abd pain *History of present illness: This is a 47-year-old gentleman seen in consultation from Dr. Colvin for evaluation regarding possible partial bowel obstruction versus enteritis. He presented to the emergency department earlier today with an acute onset mid abdominal and epigastric pain. He had associated nausea, vomiting, and diarrhea. He describes watery diarrhea . He states that he felt clammy . No definitive fevers. No hematemesis. No melena. No bright red blood per rectum. A CT scan in the emergency department revealed a focus of small bowel with some mild to moderate dilatation, but no definitive transition. These changes were felt to be consistent with either focal enteritis versus partial small bowel obstruction. Note: On June 192016 the patient underwent laparoscopic repair of umbilical hernia (Dr. Avila) this wm with progressive abd pain with vomiting and was seen in the ed with sx and finding on ct of sbo and was admitted with ivf and pain meds with bowel rest [facility] History I have reviewed the patient's past medical history: Yes Medical History: Denies:: Cancer, Diabetes Mellitus Type 1, Diabetes Mellitus Type 2, MRSA Other Surgeries: Yes: Hernia Repair Amputation: No Fractures: No - *Social History Educational Level: Completed High School Smoking Status: Current every day smoker Tobacco Type: cigarettes Alcohol Intake: never Alcohol Intake Frequency:: holidays/special occasions only Occupational Status: employed Housing: house Household Members: spouse, children - Psychiatric History Expresses thoughts of harming self/others: None Suicide Plan Description: No Plan *Family Hx:: No significant family history Review of Systems - Review of Systems Review of systems:: pertinent systems reviewed and negative unless documented below - Constitutional Denies chills - Eyes Reports change in vision - ENT Denies dizziness, Denies nasal discharge - *Respiratory Denies cough - *Gastrointestinal Reports abdominal pain, Reports nausea, Denies coffee ground vomit, Denies black, tarry stools - *Genitourinary Denies painful urination, Denies urinary frequency - *Musculoskeletal Denies joint pain, Denies joint swelling - Integumentary/Breasts Denies rash - *Neurologic Denies abnormal speech, Denies confusion, Denies tingling/numbness/burning sensations - Psychiatric Denies panic attacks Meds Home Medications Medication Instructions Recorded Confirmed Type Buspirone HCl [Buspar 10mg tablet] 10 mg PO DAILY 11/24/17 11/28/17 History Allergies Allergy/AdvReac Type Severity Reaction Status Date / Time No Known Allergies Allergy Verified 11/24/17 22:05 Exam Vital signs and Labs for Last 24 Hours: Temp Pulse Resp BP Pulse Ox 98.1 F 69 18 112/67 96 11/29/17 08:58 11/29/17 08:58 11/29/17 08:58 11/29/17 08:58 11/29/17 08:58 Laboratory Results - last 24 hr 11/29/17 06:38: WBC 8.5, RBC 4.50 L, Hgb 13.4 L D, Hct 40.3 L, MCV 89.6, MCH 29.8, MCHC 33.2, RDW 12.7, Plt Count 192 D, MPV 7.3 L, Neut % (Auto) 48.4, Lymph % (Auto) 44.2, [place] % (Auto) 5.9, Eos % (Auto) 1.1, Baso % (Auto) 0.3, Neut # (Auto) 4.1, Lymph # (Auto) 3.8, [place] # (Auto) 0.5, Eos # (Auto) 0.1, Baso # (Auto) 0.0 11/29/17 06:38: Sodium 139, Potassium 3.9, Chloride 101, Carbon Dioxide 31, Anion Gap 10.9, BUN 17, Creatinine 0.75 D, Estimated Creat Clear 182, Estimated GFR 111, Est GFR ( Amer) 134 D, Glucose 83 D I & O for Last 24 hours: Intake & Output 11/27/17 11/28/17 11/29/17 11/30/17 11:59 11:59 11:59 11:59 Intake Total 0 / 0 Balance 0 / 0 Weight 235 lb 9 oz - Constitutional no acute distress - *Routine HEENT Exam Head: Present: normocephalic Eye: Present: EOMI, PERRL. Absent: conjunctival icterus ENT: Present: mucous membranes dry - *Routine Neck Exam Present: supple - *Routine Respiratory Exam Absen
--- NOTE | 2017-11-29 12:32 | P.HP_ITS ---
*Admission Date: 11/28/17 *Chief complaint: abd pain *History of present illness: This is a 47-year-old gentleman seen in consultation from Dr. Colvin for evaluation regarding possible partial bowel obstruction versus enteritis. He presented to the emergency department earlier today with an acute onset mid abdominal and epigastric pain. He had associated nausea, vomiting, and diarrhea. He describes watery diarrhea . He states that he felt clammy . No definitive fevers. No hematemesis. No melena. No bright red blood per rectum. A CT scan in the emergency department revealed a focus of small bowel with some mild to moderate dilatation, but no definitive transition. These changes were felt to be consistent with either focal enteritis versus partial small bowel obstruction. Note: On June 192016 the patient underwent laparoscopic repair of umbilical hernia (Dr. Avila) this wm with progressive abd pain with vomiting and was seen in the ed with sx and finding on ct of sbo and was admitted with ivf and pain meds with bowel rest [facility] History I have reviewed the patient's past medical history: Yes Medical History: Denies:: Cancer, Diabetes Mellitus Type 1, Diabetes Mellitus Type 2, MRSA Other Surgeries: Yes: Hernia Repair Amputation: No Fractures: No - *Social History Educational Level: Completed High School Smoking Status: Current every day smoker Tobacco Type: cigarettes Alcohol Intake: never Alcohol Intake Frequency:: holidays/special occasions only Occupational Status: employed Housing: house Household Members: spouse, children - Psychiatric History Expresses thoughts of harming self/others: None Suicide Plan Description: No Plan *Family Hx:: No significant family history Review of Systems - Review of Systems Review of systems:: pertinent systems reviewed and negative unless documented below - Constitutional Denies chills - Eyes Reports change in vision - ENT Denies dizziness, Denies nasal discharge - *Respiratory Denies cough - *Gastrointestinal Reports abdominal pain, Reports nausea, Denies coffee ground vomit, Denies black , tarry stools - *Genitourinary Denies painful urination, Denies urinary frequency - *Musculoskeletal Denies joint pain, Denies joint swelling - Integumentary/Breasts Denies rash - *Neurologic Denies abnormal speech, Denies confusion, Denies tingling/numbness/burning sensations - Psychiatric Denies panic attacks Meds Home Medications Medication Instructions Recorded Confirmed Type Buspirone HCl [Buspar 10mg tablet] 10 mg PO DAILY 11/24/17 11/28/17 History Allergies Allergy/AdvReac Type Severity Reaction Status Date / Time No Known Allergies Allergy Verified 11/24/17 22:05 Exam Vital signs and Labs for Last 24 Hours: Temp Pulse Resp BP Pulse Ox 98.1 F 69 18 112/67 96 11/29/17 08:58 11/29/17 08:58 11/29/17 08:58 11/29/17 08:58 11/29/17 08:58 Laboratory Results - last 24 hr 11/29/17 06:38: WBC 8.5, RBC 4.50 L, Hgb 13.4 L D, Hct 40.3 L, MCV 89.6, MCH 29.8, MCHC 33.2, RDW 12.7, Plt Count 192 D, MPV 7.3 L, Neut % (Auto) 48.4, Lymph % (Auto) 44.2, [place] % (Auto) 5.9, Eos % (Auto) 1.1, Baso % (Auto) 0.3, Neut # (Auto) 4.1, Lymph # (Auto) 3.8, [place] # (Auto) 0.5, Eos # (Auto) 0.1, Baso # (Auto) 0.0 11/29/17 06:38: Sodium 139, Potassium 3.9, Chloride 101, Carbon Dioxide 31, Anion Gap 10.9, BUN 17, Creatinine 0.75 D,
--- NOTE | 2017-11-29 12:53 | PC.NURSE ---
Stool sample obtained and sent to lab [facility]RNA. Jaret
[2017-11-29 12:56] LABS: Adenovirus F 40/41, stool Not Detected (NotDetected); Astrovirus Not Detected (NotDetected); Campylobacter Not Detected (NotDetected); Clostridium Difficile A/B, PCR Not Detected (NotDetected); Cryptosporidium Not Detected (NotDetected); Cyclospora Cayetanesis Not Detected (NotDetected); Entamoeba histolytica Not Detected (NotDetected); Enteroaggregative E coli Not Detected (NotDetected); Enteropathogenic E coli Not Detected (NotDetected); Enterotoxigenic E coli Not Detected (NotDetected); Giardia lamblia Not Detected (NotDetected); Norovirus Not Detected (NotDetected); Plesimonas Shigalloides, PCR Not Detected (NotDetected); Rotavirus A Not Detected (NotDetected); Salmonella, PCR Not Detected (NotDetected); Sapovirus Not Detected (NotDetected); Shiga-like toxin E coli Not Detected (NotDetected); Shigella Enterovasive E coli Not Detected (NotDetected); Vibrio Cholerae Not Detected (NotDetected); Vibrio, PCR Not Detected (NotDetected); Yersinia Entercolitica, PCR Not Detected (NotDetected)
[2017-11-29 15:28] LABS: Lactic Acid 1.5 mmol/L (0.4-2.0)
[2017-11-29 16:10] VITALS: BP 107/65; PULSE 71; RESP 20; TEMP 36.7; O2SAT 97
--- NOTE | 2017-11-29 16:10 | PC.NURSE ---
pt stable. continues to report bilateral lower abd pain. family comes to hallway and reports that pt is very agitated and reports pt knocking on bedside table with fingers. family asks, how long does this nicotine patch work?
--- NOTE | 2017-11-29 17:08 | PC.NURSE ---
CONTACTED DR DUPREE ABOUT PTs PAIN. PT CANT HAVE PAIN MED TIL 1759. ORDERS REGLAN 5MG Q6HP FOR ABD CRAMPING AND TYLENOL 650MG Q4HRP FOR MILD TO MODERATE PAIN.
[2017-11-29 20:21] VITALS: BP 133/79; PULSE 72; RESP 20; TEMP 36.8; O2SAT 98
[2017-11-29 21:10] VITALS: O2SAT 98
--- NOTE | 2017-11-30 03:54 | PC.NURSE ---
TOLERATED DIET WELL. NO COMPLAINTS STATED. ABDOMEN NONDISTENDED, BOWEL SOUNDS POSITIVE IN ALL QUADS, SOFT AND NONTENDER PER PALPATION. INDEPENDENT WITH ADLS. REFUSED IVF'S, PT STATED I DRINKING JUST FINE I REALLY DO NOT WANT TO BE HOOKED UP TO THEM. VSS. WILL CONTINUE TO MONITOR.
[2017-11-30 04:00] VITALS: BP 128/89; PULSE 72; RESP 20; TEMP 36.7; O2SAT 100
--- NOTE | 2017-11-30 07:13 | PC.NURSE ---
REPORT GIVEN TO Wilson SCHRADER W/C
--- NOTE | 2017-11-30 07:51 | P.PN_ITS ---
Subjective Patient reports: feels better (still with some pain, but improved over the last 24 hours) Exam Vital signs and Labs for Last 24 Hours: Temp Pulse Resp BP Pulse Ox 98.1 F 72 20 128/89 100 11/30/17 04:00 11/30/17 04:00 11/30/17 04:00 11/30/17 04:00 11/30/17 04:00 Laboratory Results - last 24 hr 11/29/17 12:43: Stl Aeromonas (PCR) Not detected, Stl C. cayetanensis PCR Not detected, Stool Rotavirus (PCR) Not detected, Stl Adenov F 40/41 PCR Not detected, Stool Astrovirus (PCR) Not detected, Stool Cryptosporidium PCR Not detected, Stl E.coli Shiga Tox PCR Not detected, Stool E coli O157 PCR Not detected, Stl Enterotoxigenic E PCR Not detected, Stool EPEC (PCR) Not detected , Stool EAEC (PCR) Not detected, Stl E. histolytica PCR Not detected, Stool Giardia Lamblia PCR Not detected, Stool Sapovirus (PCR) Not detected, Stl P. shigelloides PCR Not detected, Stl Shigella/EIEC PCR Not detected, St Y.enterocolitica PCR Not detected, Stool Vibrio (PCR) Not detected, Stl Vibrio cholerae PCR Not detected, Stl Norovirus GI/GII PCR Not detected, Campylobacter (PCR) Not detected, C. difficile (PCR) Not detected, Salmonella (PCR) Not detected 11/29/17 14:50: Lactic Acid 1.5 I & O for Last 24 hours: Intake & Output 11/27/17 11/28/17 11/29/17 11/30/17 11:59 11:59 11:59 11:59 Intake Total 0 / 0 970 / 970 Balance 0 / 0 970 / 970 Weight 235 lb 9 oz - Constitutional no acute distress - *Routine Abdominal Exam Present: soft, tenderness (improved, but not resolved) Progress Note: A&P (1) Enteritis Status: Acute Assessment and plan: The patient continues to slowly improve. His white blood cell count remains normal and his diarrhea panel reveals no anomaly. Small bowel follow-through from yesterday shows no obstruction. Overall, the most likely causative factor for the patient's radiographic anomaly at the time of admission is severe focal enteritis (although transient partial obstruction remains a possibility). Full liquid diet has been ordered Further advancement of diet as per primary service Serial abdominal exams to continue during hospitalization Discharge with close outpatient follow-up when deemed appropriate per primary service Outpatient GI consultation remains a consideration Current Visit: Yes (2) Nausea and vomiting Status: Resolved Current Visit: Yes (3) Partial small bowel obstruction Status: Ruled-out Current Visit: Yes
[2017-11-30 08:26] VITALS: BP 121/85; PULSE 77; RESP 18; TEMP 36.6; O2SAT 94
[2017-11-30 10:09] LABS: Basophils % 0.4 % (0.1-2.0); Eosinophils # 0.1 K/mm3 (0.0-0.4); Eosinophils % 1.2 % (0.1-12.0); Hematocrit 41.7 % (42.0-52.0); Lymphocytes # 2.9 K/mm3 (0.7-4.5); Lymphocytes % 37.4 K/mm3 (10-50); Mean Corpuscular HGB Conc 33.7 g/dL (31.8-35.4); Mean Corpuscular Hemoglobin 29.8 pg (27.0-31.2); Mean Corpuscular Volume 88.5 fl (80-94); Mean Platelet Volume 7.5 fl (7.4-10.4); Monocytes # 0.5 K/mm3 (0.1-1.0); Monocytes % 6.9 % (1.7-9.3); Neutrophils # 4.1 K/mm3 (1.8-7.8); Neutrophils % 54.1 % (37.0-80.0); Platelet Count 201 K/mm3 (142-424); Red Blood Count 4.71 M/mm3 (4.60-6.20); Red Cell Distribution Width 12.5 % (11.5-17.5); White Blood Count 7.7 K/mm3 (4.8-10.8)
[2017-11-30 10:18] LABS: Alanine Aminotransferase 50 U/L (12-78); Albumin Level 3.7 gm/dL (3.4-5.0); Albumin/Globulin Ratio 1.2 (1.1-1.8); Alkaline Phosphatase 67 U/L (46-116); Anion Gap 10.1 mEq/L (5-15); Aspartate Amino Transferase 30 U/L (15-37); Bilirubin,Total 0.4 mg/dL (0.2-1.0); Blood Urea Nitrogen 8 mg/dL (7-18); Calcium 8.7 mg/dL (8.5-10.1); Carbon Dioxide 31 mmol/L (21.0-32.0); Chloride 102 mmol/L (98-107); Creatinine Clearance Estimated 164 mL/min (0-300); Creatinine,Serum 0.83 mg/dL (0.70-1.30); Estimated Glomerular Filt Rate 99 ml/min (>60); GFR (African American) 120 ML/MIN (>60); Globulin 3.2 gm/dl (1.3-3.2); Glucose 118 mg/dL (74-106); Potassium 4.1 mmoL/L (3.5-5.1); Sodium 139 mmol/L (136-145); Total Protein,Serum 6.9 gm/dL (6.4-8.2)
--- NOTE | 2017-11-30 10:34 | HMH.DCSUM ---
General - General Admission date: 11/28/17 Discharge date: 11/30/17 HPI HPI: This is a 47-year-old gentleman seen in consultation from Dr. Colvin for evaluation regarding possible partial bowel obstruction versus enteritis. He presented to the emergency department earlier today with an acute onset mid abdominal and epigastric pain. He had associated nausea, vomiting, and diarrhea. He describes watery diarrhea . He states that he felt clammy . No definitive fevers. No hematemesis. No melena. No bright red blood per rectum. A CT scan in the emergency department revealed a focus of small bowel with some mild to moderate dilatation, but no definitive transition. These changes were felt to be consistent with either focal enteritis versus partial small bowel obstruction. Note: On June 192016 the patient underwent laparoscopic repair of umbilical hernia (Dr. Avila) this wm with progressive abd pain with vomiting and was seen in the ed with sx and finding on ct of sbo and was admitted with ivf and pain meds with bowel rest Objective Vital signs: Temp Pulse Resp BP Pulse Ox 97.8 F 77 18 121/85 94 L 11/30/17 08:26 11/30/17 08:26 11/30/17 08:26 11/30/17 08:26 11/30/17 08:26 no acute distress - *Routine HEENT Exam Head: Present: normocephalic Eye: Present: PERRL ENT: Present: mucous membranes moist - *Routine Neck Exam Present: supple, full ROM - *Routine Respiratory Exam Present: CTA bilaterally - *Routine Cardiovascular Exam Present: RRR - *Routine Abdominal Exam Present: soft, normoactive bowel sounds, tenderness Comments: Tenderness left lower quadrant Hospital Course Hospital Course: Surgery consult see note ct scan result: IMPRESSION: 1. Mildly distended small bowel loops in the left lower quadrant with air-fluid levels nonspecific and could be related partial obstruction or enteritis. 2. No other acute anomalies evident. Small bowel follow-through Negative for obstruction We will discharge home today with outpatient monitoring. Patient will call Dr. Munoz's office on Saturday for an appointment this week Results Labs on day of discharge: Labs from last 24 hours 11/30/17 11/30/17 11/29/17 09:45 09:45 14:50 WBC 7.7 RBC 4.71 Hgb 14.0 L Hct 41.7 L MCV 88.5 MCH 29.8 MCHC 33.7 RDW 12.5 Plt Count 201 MPV 7.5 Neut % (Auto) 54.1 Lymph % (Auto) 37.4 [place] % (Auto) 6.9 Eos % (Auto) 1.2 Baso % (Auto) 0.4 Neut # (Auto) 4.1 Lymph # (Auto) 2.9 [place] # (Auto) 0.5 Eos # (Auto) 0.1 Baso # (Auto) 0.0 Sodium 139 Potassium 4.1 Chloride 102 Carbon Dioxide 31 Anion Gap 10.1 BUN 8 D Creatinine 0.83 Estimated Creat Clear 164 Estimated GFR 99 Est GFR ( Amer) 120 Glucose 118 H Lactic Acid 1.5 Calcium 8.7 Total Bilirubin 0.4 AST 30 ALT 50 Alkaline Phosphatase 67 Total Protein 6.9 Albumin 3.7 Globulin 3.2 Albumin/Globulin Ratio 1.2 Stl Aeromonas (PCR) Stl C. cayetanensis PCR Stool Rotavirus (PCR) Stl Adenov F 40/41 PCR Stool Astrovirus (PCR) Stool Cryptosporidium PCR Stl E.coli Shiga Tox PCR Stool E coli O157 PCR Stl Enterotoxigenic E PCR Stool EPEC (PCR) Stool EAEC (PCR) Stl E. histolytica PCR Stool Giardia Lamblia PCR Stool Sapovirus (PCR) Stl P. shigelloides PCR Stl Shigella/EIEC PCR St Y.enterocolitica PCR Stool Vibrio (PCR) Stl Vibrio cholerae PCR Stl Norovirus GI/GII PCR Campylobacter (PCR) C. difficile (PCR) Salmonella (PCR) 11/29/17 12:43 WBC RBC Hgb Hct MCV MCH MCHC RDW Plt Count MPV Neut % (Auto) Lymph % (Auto) [place] % (Auto) Eos % (Auto) Baso % (Auto) Neut # (Auto) Lymph # (Auto) [place] # (Auto) Eos # (Auto) Baso # (Auto) Sodium Potassium Chloride Carbon Dioxide Anion Gap BUN Creatinine Estimated C
--- NOTE | 2017-11-30 13:18 | PC.NURSE ---
verified with regional operations manager physician, ok to discharge patient. every aspect of discharge was addressed by cole novoa, order was not saved at time entered. pt order agustín entered by linsey saldana rn
== END 2017-11-30 14:30 | disposition home or self-care (01) | DRG 390 ==
LOC: ER 12:54 → 2ND 13:22 → ICU 11-29 13:37 → 2ND 11-29 13:57
PROVIDERS: Surgery; Admitting Provider Emergency Medicine; Emergency Provider Emergency Medicine; Family Provider Family Medicine; PCP Nurse Practitioner Family; Visit Provider Emergency Medicine
DX: K56.600 Partial intestinal obstruction, unspecified as to cause (principal); K52.9 Noninfective gastroenteritis and colitis, unspecified; F17.210 Nicotine dependence, cigarettes, uncomplicated; Z79.899 Other long term (current) drug therapy
CPT/HCPCS: 36415; 74177; 74250; 80048; 80053; 82550; 82553; 83605; 84484; 85025; 87507; 93005; 94640; 96365; 96375; 96376; 99283; Q9967

== ENCOUNTER → 2018-01-14 06:33 | Outpatient (CLI) | payer OTHER, SELFPAY ==
--- NOTE | 2018-01-14 06:36 | NM_ITS ---
SPECT MYOCARDIAL PERFUSION SCAN, REST AND STRESS: EXERCISE STRESS: [facility] REVIEW QGS EF AND WALL MOTION EVALUATION: QPS - PERFUSION EVALUATION: HISTORY: Chest pain, Fatigue, DM, Tobacco use PROCEDURE: Rest imaging performed after administration of10.11 millicuries Tc MIBI. Dose administered at6:45 a.m., with imaging thereafter. Stress imaging was then performed following8 minutes of exercise stress. The patient achieved a heart [id number] with projected heart rate of146 . Resting BP130/85 with stress 144/86. At maximum exercise stress,32.4 millicuries Tc MIBI administered at8:10 a.m. with [id number] minutes thereafter. FINDINGS: Perfusion Evaluation: The single slice spect images as well as the [facility] bull's-eye data summary were reviewed. Wall Motion and Ejection Fraction Evaluation: Gated SPECT review and analysis used to evaluate these features. There is a 52 % left ventricular ejection fraction. There seems to be good wall motion Stress images reveal decreased activity throughout the apex inferior wall and large portion of the septum with no significant change on rest images. IMPRESSION: This is an abnormal stress test requiring clinical correlation. Patient had good exercise capacity however there are significant decreased activities with stress and rest through the above segments.
--- NOTE | 2018-01-14 06:54 | CA_ITS ---
PROCEDURE: 2-D M-mode and color Doppler study INDICATIONS FOR THE TEST: Chest painX COPD Heart Murmur Tobacco SmokingX Palpitations Fatigue Syncope Edema Hypertension Diabetes Mellitus Rheumatic Fever SOBXDOEXObesityXHyperlipidemia Family History HD Additional History PATIENT INFORMATION HEIGHT: 71 WEIGHT:230 GENDER: Male B/P:130/85 2-D/M-MODE INTERPRETATION: 2-D MEASUREMENTS OBSERVED VALUES IN CMS Right Ventricular Dimension (RVDd) 1.6 Interventricular Septum (Thickness)(IVsd) 1.2 Left Ventricular Internal Dimensions(LVIDd) 4.4 Left Ventricular Posterior Wall (Thickness)(LVPWd) 1.2 Aortic Root 3.3 Aortic Cusp Separation 2.1 Left Atrial Dimensions (LAD) 2.7 2D 1. Left atrium is normal size, left ventricle is normal size, left ventricle wall thickness is upper limit of normal, there is preserved left ventricular systolic function, visually estimated ejection fraction 55% with no obvious regional wall motion abnormality. 2. The right atrium and right ventricle are normal size and contractility. 3. The aortic valve is minimally thickened and fibrosed. 4. The mitral and tricuspid valvular grossly normal. 5. The pulmonic valve is poorly visualized. 6. No significant pericardial effusion noted. DOPPLER INTERROGATION: Doppler interrogation of the aortic, mitral and tricuspid valvular presence of mild mitral and tricuspid regurgitation, tricuspid and jet velocity is insufficient for calculation of the right ventricular systolic pressure, diastolic parameters are inconclusive. CONCLUSION: 1. Normal left ventricular size, preserved left ventricular systolic function, visually estimated ejection fraction 55% with no obvious regional wall motion abnormality. Diastolic parameters are inconclusive. 2. Mild mitral and tricuspid regurgitation 3. No significant pericardial effusion noted.
--- NOTE | 2018-01-14 07:22 | HMH.ITSHM ---
omeprazole bupropion asa
== END ==
PROVIDERS: Family Provider Family Medicine; PCP Nurse Practitioner Family; Visit Provider Internal Medicine Cardiovascular Disease
DX: R06.09 Other forms of dyspnea (principal); R07.89 Other chest pain; R07.8 Other chest pain
CPT/HCPCS: 78452; 93017; 93306; A9502

== ENCOUNTER 2018-02-10 07:27 | Day surgery (SDC) | payer OTHER, SELFPAY ==
[2018-02-10] VITALS (13 sets, daily range): BP systolic 112–152; BP diastolic 71–87; PULSE 64–82; RESP 16–18; TEMP 36.7; O2SAT 94–99; BMI 32.9
--- NOTE | 2018-02-10 | IR_ITS ---
CARDIAC CATHETERIZATION DATE OF CATHETERIZATION:02/10/2018 10:23 AM PROCEDURES: 1. Left heart catheterization 2. Left ventriculogram 3. Selective coronary angiogram INDICATION FOR TEST: 1. Abnormal stress test 2. Risk factors for coronary artery disease 3. Angina pectoris Informed consent was obtained prior to the procedure. COMPLICATIONS: None ESTIMATED BLOOD LOSS: Less than 10 ml. TECHNIQUE: One percent lidocaine used to anesthetize the right anterior aspect of the wrist. The right radial artery was accessed via the Seldinger technique. A 6 Amharic sheath was placed in the right radial artery. 2.5 mg of verapamil, 800 mcg of nitroglycerin and 5000 U Heparin were given through the arterial sheath. The trap catheter was also used to perform left heart catheterization and left ventriculography. At the end of the procedure the patient was transferred to the post-op holding area in stable condition for arterial sheath removal. ANGIOGRAPHIC RESULTS: 1. The left main artery normal 2. The left anterior descending artery has proximal 10% stenoses and mid vessel mild luminal irregularities 3. The circumflex artery is a large caliber vessel with mid vessel 10% stenosis 4. The right coronary artery is a dominant vessel with proximal 10% stenoses mid vessel 20% stenoses distal 20% stenoses 5. The ARRIETA ventriculogram reveals hyperdynamic 75% 6. The left ventricular end-diastolic pressure 15 mmHg IMPRESSION: 1. Mild nonflow limiting coronary artery disease 2. Hyperdynamic ventricle consistent with hypertensive heart disease 3. Normal to mildly elevated LVEDP PLAN: 1. Risk factor modification 2. Patient's angina likely stems from his hyperdynamic ventricle 3. Control of hypertension should improve patient's angina 4. LDL less than 55 5. Avoidance of tobacco products
[2018-02-10 08:10] LABS: Basophils # 0.1 K/mm3 (0-0.2); Basophils % 0.7 % (0.1-2.0); Eosinophils # 0.1 K/mm3 (0.0-0.4); Eosinophils % 1.9 % (0.1-12.0); Hematocrit 46.5 % (42.0-52.0); Hemoglobin 15.4 g/dL (14.1-18.0); Lymphocytes # 2.7 K/mm3 (0.7-4.5); Lymphocytes % 39.3 K/mm3 (10-50); Mean Corpuscular HGB Conc 33.1 g/dL (31.8-35.4); Mean Corpuscular Hemoglobin 30.4 pg (27.0-31.2); Mean Platelet Volume 7.3 fl (7.4-10.4); Monocytes # 0.6 K/mm3 (0.1-1.0); Monocytes % 7.9 % (1.7-9.3); Neutrophils # 3.5 K/mm3 (1.8-7.8); Neutrophils % 50.2 % (37.0-80.0); Platelet Count 236 K/mm3 (142-424); Red Blood Count 5.05 M/mm3 (4.60-6.20); Red Cell Distribution Width 12.3 % (11.5-17.5)
[2018-02-10 08:20] LABS: Anion Gap 10.8 mEq/L (5-15); Blood Urea Nitrogen 12 mg/dL (7-18); Carbon Dioxide 30 mmol/L (21.0-32.0); Chloride 106 mmol/L (98-107); Creatinine Clearance Estimated 171 mL/min (0-300); Estimated Glomerular Filt Rate 103 ml/min (>60); GFR (African American) 125 ML/MIN (>60); Glucose 112 mg/dL (74-106); Potassium 3.8 mmoL/L (3.5-5.1); Sodium 143 mmol/L (136-145)
== END 2018-02-10 13:20 | disposition home or self-care (01) ==
PROVIDERS: Family Provider Family Medicine; PCP Nurse Practitioner Family; Visit Provider Internal Medicine
DX: I25.119 Atherosclerotic heart disease of native coronary artery with unspecified angina pectoris (principal); I11.9 Hypertensive heart disease without heart failure; Z72.0 Tobacco use; Z82.49 Family history of ischemic heart disease and other diseases of the circulatory system; R94.30 Abnormal result of cardiovascular function study, unspecified; R06.09 Other forms of dyspnea
CPT/HCPCS: 80048; 85025; 93458; 99152; C1725; C1769; J1644; Q9967

== ENCOUNTER → 2018-07-04 10:46 | Outpatient (CLI) | payer BC, OTHER, SELFPAY ==
[2018-07-04 14:01] LABS: Alanine Aminotransferase 66 U/L (12-78); Albumin Level 4.2 gm/dL (3.4-5.0); Albumin/Globulin Ratio 1.3 (1.1-1.8); Alkaline Phosphatase 98 U/L (46-116); Anion Gap 16.6 mEq/L (5-15); Aspartate Amino Transferase 27 U/L (15-37); Bilirubin,Total 0.3 mg/dL (0.2-1.0); Blood Urea Nitrogen 16 mg/dL (7-18); Carbon Dioxide 26 mmol/L (21.0-32.0); Chloride 102 mmol/L (98-107); Creatinine,Serum 0.95 mg/dL (0.70-1.30); Estimated Glomerular Filt Rate 85 ml/min (>60); GFR (African American) 102 ML/MIN (>60); Globulin 3.3 gm/dl (1.3-3.2); Glucose 199 mg/dL (74-106); Potassium 4.6 mmoL/L (3.5-5.1); Sodium 140 mmol/L (136-145); Total Protein,Serum 7.5 gm/dL (6.4-8.2)
[2018-07-04 14:17] LABS: Calcium 9.4 mg/dL (8.5-10.1)
== END ==
PROVIDERS: Visit Provider Nurse Practitioner Family
DX: E87.6 Hypokalemia (principal)
CPT/HCPCS: 80053

== ENCOUNTER → 2018-08-07 15:16 | Outpatient (REF) | payer OTHER, SELFPAY ==
[2018-08-07 17:57] LABS: Basophils % 0.5 % (0.1-2.0); Eosinophils % 0.5 % (0.1-12.0); Hematocrit 44.9 % (42.0-52.0); Hemoglobin 14.9 g/dL (14.1-18.0); Lymphocytes # 2.4 K/mm3 (0.7-4.5); Lymphocytes % 33.9 K/mm3 (10-50); Mean Corpuscular HGB Conc 33.1 g/dL (31.8-35.4); Mean Corpuscular Volume 90.7 fl (80-94); Mean Platelet Volume 7.9 fl (7.4-10.4); Monocytes # 0.4 K/mm3 (0.1-1.0); Monocytes % 6.3 % (1.7-9.3); Neutrophils # 4.1 K/mm3 (1.8-7.8); Neutrophils % 58.8 % (37.0-80.0); Platelet Count 239 K/mm3 (142-424); Red Blood Count 4.96 M/mm3 (4.60-6.20); Red Cell Distribution Width 12.7 % (11.5-17.5)
[2018-08-07 18:10] LABS: Albumin Level 4.1 gm/dL (3.4-5.0); Blood Urea Nitrogen 12 mg/dL (7-18); Chloride 98 mmol/L (98-107)
[2018-08-07 19:29] LABS: Hemoglobin A1C 8.5 % (0.0-7.0)
[2018-08-07 21:59] LABS: Alanine Aminotransferase 85 U/L (12-78); Albumin/Globulin Ratio 1.2 (1.1-1.8); Alkaline Phosphatase 155 U/L (46-116); Anion Gap 15.3 mEq/L (5-15); Aspartate Amino Transferase 41 U/L (15-37); Bilirubin,Total 0.3 mg/dL (0.2-1.0); Carbon Dioxide 29 mmol/L (21.0-32.0); Chol/HDL Ratio 7.4 (1-3.5); Cholesterol 260 mg/dL (140-200); Creatinine,Serum 0.85 mg/dL (0.70-1.30); Estimated Glomerular Filt Rate 96 ml/min (>60); GFR (African American) 116 ML/MIN (>60); Globulin 3.5 gm/dl (1.3-3.2); Glucose 320 mg/dL (74-106); HDL Cholesterol 35 mg/dL (27-67); Potassium 4.3 mmoL/L (3.5-5.1); Sodium 138 mmol/L (136-145); Total Protein,Serum 7.6 gm/dL (6.4-8.2)
[2018-08-07 22:03] LABS: Triglycerides 723 mg/dL (30-200)
[2018-08-09 12:09] LABS: Microalbumin, Urine 20.5 ug/mL (Not Estab.)
== END ==
LOC: LAB 15:16
PROVIDERS: Visit Provider Nurse Practitioner Family
DX: E11.9 Type 2 diabetes mellitus without complications (principal)
CPT/HCPCS: 80053; 80061; 82043; 82570; 83036; 85025

== ENCOUNTER → 2020-03-23 15:04 | Outpatient (CLI) | payer OTHER, MEDICAID, SELFPAY ==
[2020-03-23 15:45] LABS: Basophils # 0.1 K/mm3 (0-0.2); Basophils % 0.8 % (0.1-2.0); Eosinophils % 0.5 % (0.1-12.0); Hematocrit 48.7 % (42.0-52.0); Hemoglobin 16.3 g/dL (14.1-18.0); Lymphocytes # 4.6 K/mm3 (0.7-4.5); Lymphocytes % 52.7 % (10-50); Mean Corpuscular HGB Conc 33.6 g/dL (31.8-35.4); Mean Corpuscular Hemoglobin 30.3 pg (27.0-31.2); Mean Corpuscular Volume 90.2 fl (80-94); Mean Platelet Volume 8.3 fl (7.4-10.4); Monocytes # 0.6 K/mm3 (0.1-1.0); Monocytes % 7.3 % (1.7-9.3); Neutrophils # 3.4 K/mm3 (1.8-7.8); Neutrophils % 38.6 % (37.0-80.0); Platelet Count 285 K/mm3 (142-424); White Blood Count 8.7 K/mm3 (4.8-10.8)
[2020-03-23 15:49] LABS: MANUAL DIFFERENTIAL MANUAL DIFFERENTIAL (MANUAL DIFF)
[2020-03-23 15:54] LABS: Alanine Aminotransferase 35 U/L (12-78); Albumin Level 4.8 g/dl (3.5-5.0); Albumin/Globulin Ratio 1.8 (1.1-1.8); Alkaline Phosphatase 183 U/L (38-126); Anion Gap 16.5 mEq/L (5-15); Aspartate Amino Transferase 33 U/L (17-59); Bilirubin,Total 0.4 mg/dl (0.2-1.3); Blood Urea Nitrogen 17 mg/dl (9-20); Calcium 9.8 mg/dl (8.4-10.2); Carbon Dioxide 26 mmol/L (22.0-30.0); Chloride 93 mmol/L (98-107); Chol/HDL Ratio 3.8 (1-3.5); Cholesterol 234 mg/dl (140-200); Estimated Glomerular Filt Rate 119 ml/min (>60); GFR (African American) 144 ML/MIN (>60); Globulin 2.6 g/dL (1.3-3.2); HDL Cholesterol 61 mg/dl (40-60); Potassium 4.5 mmoL/L (3.5-5.1); Sodium 131 mmol/L (136-145); Total Protein,Serum 7.4 g/dl (6.3-8.2)
[2020-03-23 16:03] LABS: Triglycerides 804 mg/dl (30-150)
[2020-03-23 16:05] LABS: Direct LDL Cholesterol 143.47 mg/dL (100-129)
[2020-03-23 16:06] LABS: Glucose 502 mg/dl (74-100)
[2020-03-23 16:11] LABS: T4 (Thyroxine) 11.3 ug/dl (5.53-11.0)
[2020-03-23 16:24] LABS: Thyroid Stimulating Hormone 3.02 uIU/mL (0.465-4.68)
[2020-03-23 16:25] LABS: Hemoglobin A1C 9.3 % (4.0-6.0)
[2020-03-23 16:50] LABS: Eosinophils % 1 % (0-3); Lymphocytes % 60 % (10-50); Monocytes % 7 % (2-9); Neutrophils % 32 % (42-76); RBC Morphology Normal; Total Cells Counted 100
[2020-03-23 16:51] LABS: Platelet Estimate Normal
[2020-03-25 07:37] LABS: Vitamin D 25 Hydroxy 9.6 ng/mL (30.0-100.0)
== END ==
PROVIDERS: Visit Provider Nurse Practitioner Family
DX: E11.9 Type 2 diabetes mellitus without complications (principal); E55.9 Vitamin D deficiency, unspecified; Z79.84 Long term (current) use of oral hypoglycemic drugs
CPT/HCPCS: 80053; 80061; 82652; 83036; 84436; 84443; 85007; 85025

== ENCOUNTER → 2020-04-01 12:23 | Outpatient (CLI) | payer OTHER, MEDICAID, SELFPAY ==
--- NOTE | 2020-04-01 12:23 | MR_ITS ---
PROCEDURE: MR LUMBAR SPINE WO CON CLINICAL INDICATION: back pain Low back pain, left leg pain tingling and numbness COMPARISON: No exams were available for comparison TECHNIQUE: Standard multiplanar multiecho sequences are performed without contrast. 3-D MIP and myelographic images are also rendered and reviewed FINDINGS: There is normal alignment. There is slight reversal of the lumbar lordosis. Spinal cord ends at the L1 level. T12-L1: Unremarkable. L1-L2: Degenerative disc disease with mild facet and ligamentum hypertrophy and mild bulging of the disc anteriorly L2-L3: Degenerative disc disease with mild facet ligamentum hypertrophy with mild bilateral lateral recess narrowing. L3-L4: Mild facet ligamentum hypertrophy. L4-5: Facet ligamentum hypertrophy with mild bulging disc with mild bilateral foraminal narrowing. Schmorl's node is present along the superior endplate of L4. L5-S1: Degenerative disc disease with bulging disc and a small central disc protrusion slightly eccentric toward the right which abuts both S1 nerve roots. There is facet and ligamentum hypertrophy with moderate bilateral foraminal narrowing. Mild hypertrophy noted of the SI joints No extruded herniated disc is evident. No canal stenosis IMPRESSION: 1. Multilevel lumbar spondylosis with degenerative disc disease along with facet and ligamentum hypertrophy. Please see above for detailed description at each level. 2. L4-5: Facet ligamentum hypertrophy with mild bulging disc with mild bilateral foraminal narrowing. Schmorl's node is present along the superior endplate of L4. 3. L5-S1: Degenerative disc disease with bulging disc and a small central disc protrusion slightly eccentric toward the right which abuts both S1 nerve roots. There is facet and ligamentum hypertrophy with moderate bilateral foraminal narrowing. Mild hypertrophy noted of the SI joints 4. No extruded herniated disc is evident. No canal stenosis Dictated by: Sanket Nicole MD 04/02/2020 10:02 Electronically signed by Sanket Nicole MD in [place] 04/02/2020 10:02
== END ==
PROVIDERS: PCP Nurse Practitioner Family; Visit Provider Emergency Medicine
DX: R93.7 Abnormal findings on diagnostic imaging of other parts of musculoskeletal system (principal)
CPT/HCPCS: 72148; 76376

== ENCOUNTER → 2020-04-29 16:35 | Outpatient (CLI) | payer OTHER, MEDICAID, SELFPAY ==
[2020-04-29 17:24] LABS: Microalbumin/Creatinine Ratio 22.4
[2020-04-29 17:34] LABS: Creatinine,Urine Random 29 mg/dL (Not Estab.)
== END ==
PROVIDERS: Visit Provider Nurse Practitioner Family
DX: E11.9 Type 2 diabetes mellitus without complications (principal); Z79.84 Long term (current) use of oral hypoglycemic drugs
CPT/HCPCS: 82043; 82570

== ENCOUNTER → 2021-07-21 16:17 | Outpatient (CLI) | payer OTHER, MEDICAID, SELFPAY ==
[2021-07-21 18:14] LABS: Alanine Aminotransferase 61 U/L (12-78); Albumin Level 4.5 g/dl (3.5-5.0); Albumin/Globulin Ratio 1.6 (1.1-1.8); Alkaline Phosphatase 128 U/L (38-126); Anion Gap 16.2 mEq/L (5-15); Aspartate Amino Transferase 65 U/L (17-59); Bilirubin,Total 0.5 mg/dl (0.2-1.3); Blood Urea Nitrogen 9 mg/dl (9-20); Calcium 9.5 mg/dl (8.4-10.2); Carbon Dioxide 30 mmol/L (22.0-30.0); Chloride 100 mmol/L (98-107); Chol/HDL Ratio 3.3 (1-3.5); Cholesterol 182 mg/dl (140-200); Estimated Glomerular Filt Rate 142 ml/min (>60); GFR (African American) 172 ML/MIN (>60); Globulin 2.8 g/dL (1.3-3.2); Glucose 200 mg/dl (74-100); HDL Cholesterol 55 mg/dl (40-60); Potassium 4.2 mmoL/L (3.5-5.1); Sodium 142 mmol/L (136-145); Total Protein,Serum 7.3 g/dl (6.3-8.2); Triglycerides 234 mg/dl (30-150); VLDL Cholesterol 47 mg/dL (0-40)
[2021-07-21 18:21] LABS: Microalbumin/Creatinine Ratio 22.4
[2021-07-21 18:22] LABS: Creatinine,Urine Random 116 mg/dL (Not Estab.)
[2021-07-21 18:25] LABS: Direct LDL Cholesterol 98.76 mg/dL (100-129)
[2021-07-21 18:31] LABS: T4 (Thyroxine) 10.6 ug/dl (5.53-11.0)
[2021-07-21 18:32] LABS: 25-OH Vitamin D, Total 24.5 ng/mL (30-100)
[2021-07-21 18:38] LABS: Basophils # 0.1 K/mm3 (0-0.2); Basophils % 0.8 % (0.1-2.0); Eosinophils # 0.1 K/mm3 (0.0-0.4); Eosinophils % 0.7 % (0.1-12.0); Hematocrit 44.6 % (42.0-52.0); Hemoglobin 14.9 g/dL (14.1-18.0); Lymphocytes # 3.2 K/mm3 (0.7-4.5); Lymphocytes % 36.8 % (10-50); Mean Corpuscular HGB Conc 33.3 g/dL (31.8-35.4); Mean Corpuscular Hemoglobin 30.9 pg (27.0-31.2); Mean Corpuscular Volume 92.9 fl (80-94); Mean Platelet Volume 8.7 fl (7.4-10.4); Monocytes # 0.6 K/mm3 (0.1-1.0); Monocytes % 6.6 % (1.7-9.3); Neutrophils # 4.9 K/mm3 (1.8-7.8); Neutrophils % 55.2 % (37.0-80.0); Platelet Count 244 K/mm3 (142-424); Red Cell Distribution Width 13.1 % (11.5-17.5); White Blood Count 8.8 K/mm3 (4.8-10.8)
[2021-07-21 18:45] LABS: Prostate Specific Ag Screen 0.5 ng/ml (0.0-4.0); Thyroid Stimulating Hormone 1.55 uIU/mL (0.465-4.68)
[2021-07-21 19:50] LABS: Hemoglobin A1C 7.2 % (4.0-6.0)
== END ==
PROVIDERS: Visit Provider Nurse Practitioner Family
DX: I10 Essential (primary) hypertension (principal); E11.9 Type 2 diabetes mellitus without complications; E55.9 Vitamin D deficiency, unspecified; E66.9 Obesity, unspecified; F17.200 Nicotine dependence, unspecified, uncomplicated; Z68.31 Body mass index [BMI] 31.0-31.9, adult; Z79.84 Long term (current) use of oral hypoglycemic drugs; Z12.5 Encounter for screening for malignant neoplasm of prostate
CPT/HCPCS: 80053; 80061; 82043; 82306; 82570; 83036; 84436; 84443; 85025; G0103